=== PATIENT | female | born 1985 | race African-American/Black ===

== ENCOUNTER 2021-09-25 13:37 | Emergency (ER) | payer OTHER ==
[~2021-09-25] VITALS: Ht 170.2 cm; Wt 80.0 kg
[2021-09-25] MEDS ORDERED: HYDROCODONE/ACETAMINOPHEN 5/325MG TABLET PO ONE (14:00)
[2021-09-25] MEDS ORDERED: TETANUS, DIPHTHERIA, PERTUSSIS VAC/PF 0.5ML (>10YR OLD) IM ONE (14:00)
[2021-09-25] MEDS ORDERED: IBUP-2030 MT (15:24)
[2021-09-25 15:31] VITALS: BP 115/72
== END 2021-09-25 16:16 | disposition home or self-care (01) ==
LOC: ER 13:37
DX: S90.31XA Contusion of right foot, initial encounter (principal); W18.39XA Other fall on same level, initial encounter; Y93.89 Activity, other specified; Y92.89 Other specified places as the place of occurrence of the external cause; Y99.8 Other external cause status
CPT/HCPCS: 73630; 81025; 90471; 90715; 99283